=== PATIENT | female | born 1970 | race Caucasian/White ===

== ENCOUNTER 2020-03-31 19:35 | Observation (INO) | payer OTHER ==
[~2020-03-31] VITALS: Ht 149.9 cm; Wt 60.3 kg
--- NOTE | 2020-03-31 22:00 | NUR ---
Med Surg Admission Pt brought to med surg unit via stretcher / EMS. Pt admitted at this time, oriented to room, call system, and hospital policies. Admission assessment completed at this time.
[2020-03-31 22:23] VITALS: BP 130/87
[2020-03-31 22:26] VITALS: BP 130/87
--- NOTE | 2020-03-31 23:20 | PCM.HP ---
History of Present Illness Reason for Visit: (1) Dysfunctional uterine bleeding ICD Code: N93.8 - Other specified abnormal uterine and vaginal bleeding SNOMED: 78123940185127 (2) Severe anemia ICD Code: D64.9 - Anemia, unspecified SNOMED: 436539797 (3) Syncope and collapse ICD Code: R55 - Syncope and collapse SNOMED: 858394490 (4) Anemia ICD Code: D64.9 - Anemia, unspecified SNOMED: 221123024 Hx of Present Illness 49-year-old female with a past medical history of chronic anemia due to vaginal bleeding who was at the [facility] in [place] today to receive an iron infusion when after the infusion she went up to the cafeteria to eat and had a vasovagal syncope with a rapid response at the [facility]. She was evaluated at the [facility] found to have a hemoglobin of 8 but work-up was otherwise unremarkable aside from a negative COVID-[address] Limon at the [facility] contacted me due to the fact that there were no available beds in [place] for transfer for observation of this patient given her syncopal episode and rapid response. She does have an appointment on the of this month for discussion of hysterectomy due to her vaginal bleeding with severe anemia. Please see records from [facility] in [place] for complete details of the patient's previous work-up. These were extensively reviewed by myself Past Medical History Hx Last Menstrual Period: 03/31/20 Review of Systems Constitutional: Weakness (Generalized weakness), Malaise; No: Fever, Chills, Sweats, Other Eyes: No: Pain, Vision change, Conjunctivae inflammation, Eyelid inflammation, Other, Redness ENT: No: Ear pain, Ear discharge, Nose pain, Nose discharge, Nose congestion, Mouth pain, Mouth swelling, Throat pain, Throat swelling, Other Respiratory: No: Cough, Dry, Shortness of breath, SOB with excertion, Wheezing, Hemoptysis, Pleuritic Pain, Sputum, Wheezing, Other Cardiovascular: Lt Headedness; No: Chest Pain, Palpitations, Orthopnea, Paroxysmal Noc. Dyspnea, Edema, Other Gastrointestinal: No: Nausea, Vomiting, Abdominal Pain, Diarrhea, Constipation, Melena, Hematochezia, Other Genitourinary: No Dysuria, No Frequency, No Incontinence, No Hematuria, No Retention, No Other Musculoskeletal: No: other, neck pain, shoulder pain, arm pain, back pain, hand pain, leg pain, foot pain Skin: No: Rash, Lesions, Jaundice, Bruising, Other Neurological: Weakness (Generalized weakness); No: Numbness, Incoordination, Change in speech, Confusion, Seizures VTE VTE Risk Total Score: 3 VTE Risk Score VTE Risk: Score 0-1 = Low Risk (Aggressive mobilization; early ambulation; no VTE prophylaxis required) Score 2: Moderate Risk (Intermittent/Pneumatic Compression Device OR Lovenox/Heparin/Coumadin) Score 3-4: High Risk (Intermittent/Pneumatic Compression Device AND Lovenox/Heparin/Coumadin) Score > or =5: Highest Risk (Intermittent/Pneumatic Compression Device AND Lovenox/Heparin/Coumadin) Antico:Hep/LMWH/Coum/Xarelto: No Mechanical device ordered: Yes Reasons not ordering prophylax: Bleeding VTE VTE Present on Admission: No Currently receiving anticoagul: No VTE Risk Total Score: 3 Exam Vital Signs Vital Signs Date Time Temp Pulse Resp B/P (MAP) Pulse Ox O2 Delivery O2 Flow Rate FiO2 03/31/20 22:43 Room Air 03/31/20 22:26 98.1 105 18 130/87 (101) 96 General Appearance: Alert, Oriented X3, Cooperative, No acute distress HEENT: Atraumatic, PERRLA Respiratory: Clear to auscultation, Normal air movement Cardiovascular: Other (Borderline tachycardia) Abdominal: Normal bowel sounds Extremities: No clubbing Skin: No rash, No breakdown, Other (Pallor) Neuro: Normal gait, Normal speech Psych/Mental Status: Mental status NL, Mood NL Assessment/Plan Assessment/Plan Assessment/Plan Assessment: 49-year-old female with history of chronic anemia due to dysfunctional uterine bleeding who had a syncopal episode after an iron infusion work-up at the ER was unremarkable aside from a hemoglobin of 8 patient was admitted for further evaluation and treatment of her syncope in the setting of anemia Plan: Anemia: Received an iron transfusion today will monitor hemoglobin currently 8 and does not meet transfusion criteria. Secondary to dysfunctional uterine bleeding Dysfunctional uterine bleeding: Patient reports that this is been evaluated and worked up at the [facility] she reports that she has an appointment on the of this month for hysterectomy due to complications of bleeding and moderate anemia Syncope and collapse: Could be related to iron transfusion however in the setting of moderate anemia we will further investigate for stability of hemoglobin in the setting of active vaginal bleeding with patient reporting that she goes through a pad every couple of hours currently. Prophylaxis: We will utilize SCDs no anticoagulation due to active bleeding and anemia Disposition: Home with further work-up and treatment at the [facility] pending stability of hemoglobin and orthostatics Problems: (1) Dysfunctional uterine bleeding Status: Chronic ICD Code: N93.8 - Other specified abnormal uterine and vaginal bleeding SNOMED: 54478640042854 (2) Syncope and collapse Status: Acute ICD Code: R55 - Syncope and collapse SNOMED: 185423528 (3) Anemia Status: Chronic SEVERITY: MODERATE PERSISTENT ICD Code: D64.9 - Anemia, unspecified SNOMED: 240593362 Problem Qualifiers (1) Anemia: Iron deficiency anemia type: chronic blood loss DARIA RODRIGUEZ MD Mar 31, 2020 23:20
[2020-04-01] VITALS (11 sets, daily range): BP systolic 123–150; BP diastolic 72–100
[2020-04-01] MEDS: MOTRIN PO PRN ×2 (00:31→20:51)
[2020-04-01 05:29] LABS: BASOPHIL # 0.1 10^3/uL (0.0-0.1); EOSINOPHIL # 0.4 10^3/uL (0.0-0.2); EOSINOPHIL % 5.7 % (0.0-5.0); MEAN CORP HGB 16.3 pg (26-34); MONOCYTES # 0.5 10^3/uL (0.3-0.8); MONOCYTES % 6.5 % (5.0-12.0); NEUTROPHIL # 5.3 10^3/uL (1.8-7.7); NEUTROPHILS % 71.7 % (41.0-85.0); PLATELET COUNT 528 10^3/uL (150-400); RED CELL DISTRIBUTION WIDTH 19.1 % (11.5-14.5)
[2020-04-01 05:57] LABS: CALCIUM 8.2 mg/dL (8.4-10.5); CARBON DIOXIDE 24.6 mmol/L (20.0-32)
[2020-04-01] MEDS ORDERED: TRANEXAMIC ACID 1,000 MG in NS 100ML 100 ML IV SCH (07:30)
--- NOTE | 2020-04-01 07:40 | PRM.PN ---
Subjective Subjective Date: Apr 01, 2020 Time: 07:40 Subjective Patient does report that she feels weaker this morning she does not endorse going through more than 1 pad per hour however her hemoglobin is 5.9 on recheck this morning and she will require blood transfusion. Patient denies having a blood transfusion before but states that she has requested them at the NH due to her chronic blood loss anemia that she feels is symptomatic. Risks of benefits of blood transfusion discussed with the patient and when she would like to proceed with transfusion to alleviate her symptoms and severe anemia VTE VTE Risk Total Score: 3 VTE Risk Score VTE Risk: Score 0-1 = Low Risk (Aggressive mobilization; early ambulation; no VTE prophylaxis required) Score 2: Moderate Risk (Intermittent/Pneumatic Compression Device OR Lovenox/Heparin/Coumadin) Score 3-4: High Risk (Intermittent/Pneumatic Compression Device AND Lovenox/Heparin/Coumadin) Score > or =5: Highest Risk (Intermittent/Pneumatic Compression Device AND Lovenox/Heparin/Coumadin) Antico:Hep/LMWH/Coum/Xarelto: No Mechanical device ordered: Yes Reasons not ordering prophylax: Bleeding Review of Systems Constitutional: Weakness, Malaise Eyes: No: Pain, Vision change, Conjunctivae inflammation, Eyelid inflammation, Other, Redness ENT: No: Ear pain, Ear discharge, Nose pain, Nose discharge, Nose congestion, Mouth pain, Mouth swelling, Throat pain, Throat swelling, Other Respiratory: No: Cough, Dry, Shortness of breath, SOB with excertion, Wheezing, Hemoptysis, Pleuritic Pain, Sputum, Wheezing, Other Cardiovascular: No: Chest Pain, Palpitations, Orthopnea, Paroxysmal Noc. Dyspnea, Edema, Lt Headedness, Other Gastrointestinal: No: Nausea, Vomiting, Abdominal Pain, Diarrhea, Constipation, Melena, Hematochezia, Other Genitourinary: Other (Vaginal bleeding) Musculoskeletal: No: other, neck pain, shoulder pain, arm pain, back pain, hand pain, leg pain, foot pain Skin: No: Rash, Lesions, Jaundice, Bruising, Other Neurological: No: Weakness, Numbness, Incoordination, Change in speech, Confusion, Seizures, Other Objective Vitals and I/O Vital Sign - Last 24 Hours 03/31/20 03/31/20 03/31/20 04/01/20 22:23 22:26 22:43 00:26 Temp 98.1 98.1 98.1 Pulse 105 105 104 Resp 18 18 18 B/P (MAP) 130/87 (101) 130/87 (101) 135/84 (101) Pulse Ox 96 96 97 O2 Delivery Room Air Room Air Room Air Room Air 04/01/20 04/01/20 04:30 05:04 Temp 98.6 Pulse 91 Resp 18 B/P (MAP) 127/72 (90) Pulse Ox 95 O2 Delivery Room Air Room Air Intake and Output 04/01/20 07:00 Output Total 450 ml Balance -450 ml General: Alert, Oriented X3, Cooperative, No acute distress HEENT: Atraumatic, PERRLA Neck: Supple, No JVD Lungs: Clear to auscultation Heart: Other (Tachycardia in the setting of severe anemia) Abdomen: Normal bowel sounds, Soft, No tenderness, No masses Extremities: No clubbing, No cyanosis, No edema, Normal pulses, No tenderness/swelling Skin: Other (Pallor) Neuro: Normal gait, Normal speech, Strength at 5/5 X4 ext, Normal tone, Sensation intact Psych/Mental Status: Mental status NL, Mood NL All Results(Lab/Rad) Laboratory Tests Test 04/01/20 04:59 White Blood Count 7.3 10^3/uL Red Blood Count 3.63 10^6/uL Hemoglobin 5.9 g/dL Hematocrit 22.0 % Mean Corpuscular Volume 60.6 fL Mean Corpuscular Hemoglobin 16.3 pg Mean Corpuscular Hemoglobin Concent 26.8 g/dL Red Cell Distribution Width 19.1 % Platelet Count 528 10^3/uL Mean Platelet Volume 9.1 fL Neutrophils (%) (Auto) 71.7 % Lymphocytes (%) (Auto) 15.0 % Monocytes (%) (Auto) 6.5 % Neutrophils # (Auto) 5.3 10^3/uL Lymphocytes # (Auto) 1.10 10^3/uL1 Monocytes # (Auto) 0.5 10^3/uL Absolute Immature Granulocyte (auto 0.01 10^3 u/L Absolute Eosinophils (auto) 0.4 10^3/uL Immature Granulocytes % 0.10 % Eosinophils % 5.7 % Basophils % 1.0 % Basophils # 0.1 10^3/uL Sodium Level 143 mmol/L Potassium Level 3.8 mmol/L Chloride Level 110.0 mmol/L Carbon Dioxide Level 24.6 mmol/L Anion Gap 12.2 Blood Urea Nitrogen 9 mg/dL Creatinine 0.76 mg/dL Estimated GFR () 97.1 Est GFR (CKD-EPI)(Non-Afr Spanish) 80.2 BUN/Creatinine Ratio 11.0 Glucose Level 84 mg/dL Calcium Level 8.2 mg/dL Total Bilirubin 0.2 mg/dL Aspartate Amino Transf (AST/SGOT) 10 U/L Alanine Aminotransferase (ALT/SGPT) 13 U/L Alkaline Phosphatase 58 U/L Total Protein 6.0 g/dL Albumin 2.8 g/dL Globulin 3.2 Albumin/Globulin Ratio 0.875 Current Medications Medications (Trade) Dose Ordered Sig/Segundo Route PRN Reason Start Time Stop Time Status Last Admin Dose Admin Ibuprofen (Motrin) 800 mg Q6H PRN PO PAIN 1 - 3 04/01/20 00:00 05/01/20 00:00 04/01/20 00:31 Tranexamic Acid 1000 mg/Sodium Chloride 110 ml @ 200 mls/hr OT IV 04/01/20 07:30 05/01/20 07:29 UNV Course Sepsis Screening Results: Posi: NEGATIVE Sepsis Qualifier/Stage: NO DEFINITE RISK Vitals & review Data Vital Sign - Last 24 Hours 03/31/20 03/31/20 03/31/20 04/01/20 22:23 22:26 22:43 00:26 Temp 98.1 98.1 98.1 Pulse 105 105 104 Resp 18 18 18 B/P (MAP) 130/87 (101) 130/87 (101) 135/84 (101) Pulse Ox 96 96 97 O2 Delivery Room Air Room Air Room Air Room Air 04/01/20 04/01/20 04:30 05:04 Temp 98.6 Pulse 91 Resp 18 B/P (MAP) 127/72 (90) Pulse Ox 95 O2 Delivery Room Air Room Air Intake and Output 04/01/20 07:00 Output Total 450 ml Balance -450 ml Laboratory Tests Test 04/01/20 04:59 White Blood Count 7.3 10^3/uL Red Blood Count 3.63 10^6/uL Hemoglobin 5.9 g/dL Hematocrit 22.0 % Mean Corpuscular Volume 60.6 fL Mean Corpuscular Hemoglobin 16.3 pg Mean Corpuscular Hemoglobin Concent 26.8 g/dL Red Cell Distribution Width 19.1 % Platelet Count 528 10^3/uL Mean Platelet Volume 9.1 fL Neutrophils (%) (Auto) 71.7 % Lymphocytes (%) (Auto) 15.0 % Monocytes (%) (Auto) 6.5 % Neutrophils # (Auto) 5.3 10^3/uL Lymphocytes # (Auto) 1.10 10^3/uL1 Monocytes # (Auto) 0.5 10^3/uL Absolute Immature Granulocyte (auto 0.01 10^3 u/L Absolute Eosinophils (auto) 0.4 10^3/uL Immature Granulocytes % 0.10 % Eosinophils % 5.7 % Basophils % 1.0 % Basophils # 0.1 10^3/uL Sodium Level 143 mmol/L Potassium Level 3.8 mmol/L Chloride Level 110.0 mmol/L Carbon Dioxide Level 24.6 mmol/L Anion Gap 12.2 Blood Urea Nitrogen 9 mg/dL Creatinine 0.76 mg/dL Estimated GFR () 97.1 Est GFR (CKD-EPI)(Non-Afr Spanish) 80.2 BUN/Creatinine Ratio 11.0 Glucose Level 84 mg/dL Calcium Level 8.2 mg/dL Total Bilirubin 0.2 mg/dL Aspartate Amino Transf (AST/SGOT) 10 U/L Alanine Aminotransferase (ALT/SGPT) 13 U/L Alkaline Phosphatase 58 U/L Total Protein 6.0 g/dL Albumin 2.8 g/dL Globulin 3.2 Albumin/Globulin Ratio 0.875 Current Medications Medications (Trade) Dose Ordered Sig/Segundo PRN Reason Start Time Stop Time Status Last Admin Ibuprofen (Motrin) 800 mg Q6H PRN PAIN 1 - 3 04/01/20 00:00 05/01/20 00:00 04/01/20 00:31 Tranexamic Acid 1000 mg/Sodium Chloride 110 ml @ 200 mls/hr OT 04/01/20 07:30 05/01/20 07:29 UNV LEVEL 1 SEPSIS INFECTION CRITE: Urinary Tract Infection O2 Sat by Pulse Oximetry: 95 Assessment/Plan Assessment/Plan Assessment/Plan Assessment: 49-year-old female with history of chronic anemia due to dysfunctional uterine bleeding who had a syncopal episode after an iron infusion work-up at the ER was unremarkable aside from a hemoglobin of 8 patient was admitted for further evaluation and treatment of her syncope in the setting of anemia. Patient has continued to have bleeding overnight and hemoglobin dropped from 8-5.9 patient will require blood transfusion and is agreed to this after discussing risks and benefits Plan: Severe Anemia: Secondary to dysfunctional uterine bleeding. Hemoglobin 5.9--> Patient qualifies for blood transfusion we will utilize tranexamic acid IV to reduce bleeding as well as ibuprofen which is should have been shown to reduce uterine bleeding by up to 25% by reducing prostaglandin synthesis. We will start patient on a course of oral medroxyprogesterone (Provera) to stabilize the bleeding until she can have her hysterectomy done at the [facility] Dysfunctional uterine bleeding: Patient reports that this has been evaluated and worked up at the NH she reports that she has an appointment on the of this month for hysterectomy due to complications of bleeding and severe anemia Syncope and collapse: In the setting of active vaginal bleeding with patient reporting that she goes through a pad every couple of hours currently severe anemia is likely the cause Prophylaxis: We will utilize SCDs no anticoagulation due to active bleeding and anemia Disposition: Home with further work-up and treatment at the NH pending stability of hemoglobin and orthostatics Problems: (1) Severe anemia ICD Code: D64.9 - Anemia, unspecified SNOMED: 940604965 (2) Dysfunctional uterine bleeding Status: Chronic ICD Code: N93.8 - Other specified abnormal uterine and vaginal bleeding SNOMED: 98947452866583 DARIA RODRIGUEZ MD Apr 01, 2020 07:40
--- NOTE | 2020-04-01 11:00 | NUR ---
DISCHARGE PLAN CASE MANAGEMENT VISITED WITH PT AT BEDSIDE CONCERNING DISCHARGE PLAN AND NEEDS. LIVES AT HOME IN [place], [place]. HAS DME INCLUDING A NEBULIZER. DENIES NEED FOR HOME OXYGEN AT THIS TIME OR OUTPATIENT SERVICES. PCP IS OR DR. BENTON. PT WAS TRANSFERRED FROM [facility] D/T BEDS NOT BEING AVAILABLE AND IS NEEDING TRANSPORTATION BACK TO [place], [place]. THE OR HAS TOLD PT THEY WILL BE ABLE TO TRANSPORT PT BACK TO [place]. DISCHARGE PLAN IS TO DC HOME AND CONTINUE SELF CARE. CM WILL CONTINUE TO FOLLOW FOR DISCHARGE NEEDS.
[2020-04-01] MEDS ORDERED: NS 500ML 500 ML IV ONE (12:20)
--- NOTE | 2020-04-01 13:45 | NUR ---
DISCHARGE Pt was given discharge packet and was educated on chest wall friction, s/s of complications Addendum: 04/01/20 at 1652 by COLE Maddox RN S/S of complications that require emergency care. Pt was educated on her new prescriptions s/s of allergic reaction to her new prescriptions, s/s of PR, that she needed to follow up with her PCP this week to discuss further treatment, was shown where to find all labs, vitals, and Physician name and numbers. Pt had no questions or concerns and discharge packet was signed at this time
--- NOTE | 2020-04-01 14:40 | NUR ---
TRANSPORTATION [facility] AND SPOKE WITH [place] THE PROCUREMENT DIRECTOR @ [phone] EXT [phone] TO ARRANGE TRANSPORTATION FOR PT BACK TO [place], [place]. THEIR SERVICES WERE UNAVAILABLE TODAY. THEY WILL BE HERE TOMORROW BETWEEN 11:30-12:00 TO TRANSPORT PT BACK TO [place].
[2020-04-01] MEDS: PROVERA PO SCH (18:00)
--- NOTE | 2020-04-01 20:43 | NUR ---
blood started slowly 2 unit
--- NOTE | 2020-04-01 22:51 | NUR ---
2nd unit of completed patient tolerated well no signs of reaction
[2020-04-02 05:23] LABS: BASOPHIL # 0.1 10^3/uL (0.0-0.1); BASOPHIL % 0.7 % (0.0-0.2); EOSINOPHIL # 0.6 10^3/uL (0.0-0.2); LYMPHOCYTES # 1.77 10^3/uL1 (1.0-4.8); MEAN CORP HGB 19.5 pg (26-34); MONOCYTES # 0.6 10^3/uL (0.3-0.8); MONOCYTES % 7.8 % (5.0-12.0); NEUTROPHILS % 61.8 % (41.0-85.0); PLATELET COUNT 503 10^3/uL (150-400); RED CELL DISTRIBUTION WIDTH 24.2 % (11.5-14.5)
[2020-04-02 06:08] VITALS: BP 146/56
[2020-04-02 06:15] LABS: CALCIUM 8.3 mg/dL (8.4-10.5); CARBON DIOXIDE 24.9 mmol/L (20.0-32)
[2020-04-02 07:00] VITALS: BP 141/92
[2020-04-02] MEDS: PROVERA PO SCH (08:34)
[2020-04-02] MEDS: MOTRIN PO PRN (08:44)
--- NOTE | 2020-04-02 11:25 | PRM.DC ---
DISCHARGE SUMMARY Y DATE OF ADMISSION: 03/31/20 DATE OF DISCHARGE: 04/02/20 FINAL DISCHARGE DIAGNOSES: 1) Severe Symptomatic Acute on Chronic Iron Deficiency Anemia: s/p Iron Infusion at the [facility] on 03/31/20 and 2u PRBCs transfused here on 04/01/20. 2) Dysfunctional Uterine Bleeding: Pt has an appointment with [facility] on 04/13/20 to discuss possible Hysterectomy. She declines any further "hormone treatments" at this time. 3) Syncope: Likely due to #1 above. No further episodes while hospitalized here in [facility]. 4) Hx of Uterine CA: s/p 3 months of chemotherapy when Patient was 24 yrs old. CONSULTS: None HISTORY & BRIEF HOSPITAL COURSE: Ms Alonso is a 49yo WF who was transferred from the [facility] in [place], [place] for a Syncopal episode that occurred after she'd had an Iron Infusion while there. Patient was found to have a Hgb 8, and reported having a long history of Anemia due to Dysfunctional Uterine Bleeding. She is actually scheduled to see [facility] on 04/13/20 to discuss a possible Hysterectomy. While here in our hospital, patient continued to have heavy uterine bleeding and her Hgb dropped to 5.9. She was transfused 2units PRBCs and reported feeling "much stronger" afterwards. Patient has had no further syncopal episodes and states that her bleeding has lessened. She is eager to be discharged home today. PHYSICAL EXAMINATION: VITAL SIGNS: T 98.5, HR 89, RR 16, BP 141/92, O2 sat 97% on RA GENERAL: Resting comfortably in NAD. No family or friends present at bedside. HEENT: NC/AT. PERRLA. EOMI. MMM. Neck is supple. LUNGS: CTAB. No wheezing, rales, or rhonchi. HEART: Normal S1S2. No murmurs, rubs, gallops, or thrills. ABDOMEN: Soft. ND. NTTP. No rebound or guarding. Normal BS throughout. EXTREMITIES: No pitting edema. Moving all 4 extremities equally and completely off the bed. SKIN: No obvious rashes or open cuts. NEUROLOGIC: AAOx3. Sensation intact. Gait was not assessed at this time. DISCHARGE CONDITION: Stable DISPOSITION: D/C'd home MEDICATIONS: See Med Rec INSTRUCTION TO PT: 1) Diet: Regular as tolerated 2) Activity: As tolerated FOLLOW UP: 1) PCP at [facility] in 1 week, or sooner as needed. 2) [facility] on 04/13/20 as previously arranged. DELANEY ALEJANDRO MD Apr 02, 2020 11:25
[2020-04-02 12:30] VITALS: BP 141/92
--- NOTE | 2020-04-02 12:30 | NUR ---
DISCHARGE DISCONTINUED IV PER ASEPTIC TECHNIQUE, CATHETER INTACT, NO S/S OF INFECTION NOTED. EDUCATION SESSION HELD WITH PATIENT PRIOR TO DISCHARGE IN THE FORUM OF VERBAL AND WRITTEN MATERIAL. EDUCATION SESSION INCLUDED FOLLOW UP APPOINTMENT, DIET AND ACTIVITY RECOMMENDATIONS, WELL OTHER DISCHARGE INFORMATION. PATIENT VERBALIZED UNDERSTANDING, NO QUESTIONS OF CONCERNS PRESENTED AT THIS TIME. PATIENT LEFT UNIT VIA W/C NO ACUTE S/S OF DISTRESS NOTED. PATIENT LEFT UNIT VIA MEDICAL VAN WITH [facility] STAFF. RELINQUISHED CARE AT THIS TIME
== END 2020-04-02 12:30 | disposition home or self-care (01) ==
LOC: INTOOBSV 19:35 → UNDOADMOB 19:35 → MS 19:35
PROVIDERS: ADMIT Family Medicine; ATTEND Family Medicine
DX: N93.8 Other specified abnormal uterine and vaginal bleeding (principal); R55 Syncope and collapse; D50.0 Iron deficiency anemia secondary to blood loss (chronic); Z85.42 Personal history of malignant neoplasm of other parts of uterus
CPT/HCPCS: 36415 ×2; 36430; 80053 ×2; 83735; 84100; 85014; 85018; 85025 ×2; 86885; 86900 ×3; 86901; 86922; G0378 ×13; J7040; P9016 ×2